=== PATIENT | female | born 1945 | race Caucasian/White ===

== ENCOUNTER 2017-06-13 22:15 | Inpatient (IN) ==
[2017-06-13] MEDS ORDERED: PANTOPRAZOLE 40 MG VIAL IV STA (22:35)
[2017-06-13] MEDS ORDERED: METOCLOPRAMIDE 10 MG/2 ML VIAL IV STA (22:35)
[2017-06-13] MEDS ORDERED: ONDANSETRON 4 MG/2 ML VIAL IV STA (22:35)
[2017-06-13] MEDS ORDERED: SODIUM CHLORIDE 0.9% 500 ML IV STA (22:35)
[2017-06-13] MEDS ORDERED: DICYCLOMINE 20 MG/2 ML AMP IM ONE ×2 (22:37→23:07)
[2017-06-13] MEDS ORDERED: METOCLOPRAMIDE 10 MG/2 ML VIAL ONE (23:06)
[2017-06-13] MEDS ORDERED: PANTOPRAZOLE 40 MG VIAL IV ONE (23:06)
[2017-06-13] MEDS ORDERED: ONDANSETRON 4 MG/2 ML VIAL ONE (23:06)
[2017-06-13 23:10] LABS: Basophils % 0.4 % (0.0-0.8); Eosinophils # 0.1 10*3/uL (0.0-0.87); Eosinophils % 0.9 % (0.00-10.9); Hematocrit 34.7 VOL% (35.7-47.0); Hemoglobin 11.4 GM/DL (12.0-16.0); Immature Granulocytes % 0.1 %; Immature Granulocytes Absolute 0.01 #; Lymphocytes # 1.9 10*3/uL (1.4-4.0); Lymphocytes % 28.2 % (21.3-54.2); Mean Corpuscular HGB Conc 32.9 GM/DL (32-36); Mean Corpuscular Hemoglobin 27 PG (27-34); Mean Corpuscular Volume 82.2 FL (87-102); Mean Platelet Volume 10.2 FL (9.6-12.0); Monocytes # 0.5 10*3/uL (0.11-0.8); Monocytes % 7.1 % (1.7-12.7); Neutrophils # 4.3 10*3/uL (1.4-7.4); Neutrophils % 63.3 % (38.7-73.9); Platelet Count 247 T/CUMM (130-400); Red Blood Count 4.22 MC/CUMM (3.8-5.5); Red Cell Distribution Width 14.5 % (9.3-17.3); White Blood Count 6.7 T/CUMM (4-12)
[2017-06-13 23:33] LABS: INR 0.9
[2017-06-13 23:41] LABS: Alanine Aminotransferase 116 U/L (13-56); Albumin 3.7 G/DL (3.4-5.0); Alkaline Phosphatase 268 U/L (45-117); Amylase 245 U/L (25-115); Aspartate Amino Transferase 327 U/L (0-37); Blood Urea Nitrogen 17 MG/DL (7-18); Calcium 8.9 MG/DL (8.5-10.1); Glucose 120 MG/DL (74-106); Osmolality,Calculated 281.4 MOS/KG (273-304); Potassium 4.1 MMOL/L (3.5-5.1); Sodium 140 MMOL/L (136-145); Total Protein 6.7 G/DL (6.4-8.3); Troponin I Only < 0.015 NG/ML (0.00-0.045)
[2017-06-14 01:08] LABS: Apearance,Urine CLEAR (Clear); Bacteria,Urine Occasional /HPF (Few); Bilirubin,Urine Negative (Negative); Blood, Urine Negative (Negative); Calcium Oxalate Crystals,Urine Occasional /HPF (Few); Glucose,Urine (UA) Negative (Negative); Ketones,Urine Negative (Negative); Mucus,Urine Occasional /LPF (Occasional); Nitrite,Urine Negative (Negative); Protein,Urine Negative; RBC,Urine 1 /HPF (0-4); Squamous Epithelial Cell,Urine Occasional /HPF (0-10); Urine Color Yellow (Yellow); Urine Specific Gravity 1.011 (1.001-1.035); Urine Urobilinogen < 2.0 EU/DL (0.2-1.0); WBC,Urine 3 /HPF (0-6)
[2017-06-14] MEDS ORDERED: HYDROmorphone 2 MG/1 ML VIAL IV STA (01:40)
[2017-06-14] MEDS ORDERED: HYDROmorphone 2 MG/1 ML VIAL ONE (01:56)
[2017-06-14] MEDS ORDERED: SODIUM CHLORIDE 0.9% 1,000 ML IV SCH (02:38)
[2017-06-14] MEDS ORDERED: SODIUM CHLORIDE 0.9% 500 ML IV ONE (02:40)
[2017-06-14] MEDS: CIPROFLOXACIN INJ 400 MG in PREMIX 1 EACH IV SCH ×3 (04:08→18:24)
[2017-06-14 06:54] LABS: Magnesium 1.9 MG/DL (1.8-2.4); Risk Ratio 2.18; VLDL CHOLESTEROL 7.8 MG/DL
[2017-06-14] MEDS: LACTATED RINGERS 1,000 ML IV SCH ×5 (06:54→23:34)
[2017-06-14 06:57] LABS: Albumin 3.1 G/DL (3.4-5.0); Calcium 8.2 MG/DL (8.5-10.1); Osmolality,Calculated 281.4 MOS/KG (273-304); Total Protein 5.8 G/DL (6.4-8.3)
[2017-06-14 07:46] LABS: Hepatitis A Ab IgM Quant 0.12 Index; Hepatitis A Ab IgM Result Negative (Negative); Hepatitis B Core IgM Quant 0.09 Index; Hepatitis B Core IgM Result Negative (Negative); Hepatitis B Surface Ag Quant 0.28 Index; Hepatitis B Surface Ag Result Negative (Negative); Hepatitis C Virus Ab Quant < 0.02 Index; Hepatitis C Virus Ab Result Negative (Negative)
[2017-06-14] MEDS: PANTOPRAZOLE 40 MG VIAL IV SCH (09:28)
[2017-06-14] MEDS: ENOXAPARIN 40 MG/0.4 ML SYRINGE SUBCUT SCH (09:29)
[2017-06-14] MEDS: HYDROmorphone 2 MG/1 ML VIAL IV PRN ×3 (10:35→23:45)
[2017-06-14] MEDS: ONDANSETRON 4 MG/2 ML VIAL IV PRN (20:51)
[2017-06-14] MEDS: OXcarbazepine 300 MG TABLET PO PRN (23:44)
[2017-06-14] MEDS: traZODone 50 MG TABLET PO PRN (23:45)
[2017-06-15] MEDS: CIPROFLOXACIN INJ 400 MG in PREMIX 1 EACH IV SCH ×3 (01:46→17:39)
[2017-06-15] MEDS: LACTATED RINGERS 1,000 ML IV SCH ×5 (05:13→23:50)
[2017-06-15] MEDS: ONDANSETRON 4 MG/2 ML VIAL IV PRN (05:18)
[2017-06-15] MEDS: HYDROmorphone 2 MG/1 ML VIAL IV PRN ×2 (05:22→23:46)
[2017-06-15 07:30] LABS: Basophils % 0.7 % (0.0-0.8); Eosinophils # 0.3 10*3/uL (0.0-0.87); Eosinophils % 6.3 % (0.00-10.9); Hematocrit 33.2 VOL% (35.7-47.0); Hemoglobin 10.6 GM/DL (12.0-16.0); Immature Granulocytes % 0.2 %; Immature Granulocytes Absolute 0.01 #; Lymphocytes % 37.3 % (21.3-54.2); Mean Corpuscular HGB Conc 31.9 GM/DL (32-36); Mean Corpuscular Hemoglobin 27 PG (27-34); Mean Corpuscular Volume 83.2 FL (87-102); Mean Platelet Volume 10.6 FL (9.6-12.0); Monocytes # 0.5 10*3/uL (0.11-0.8); Monocytes % 8.6 % (1.7-12.7); Neutrophils # 2.5 10*3/uL (1.4-7.4); Neutrophils % 46.9 % (38.7-73.9); Platelet Count 225 T/CUMM (130-400); Red Blood Count 3.99 MC/CUMM (3.8-5.5); Red Cell Distribution Width 14.4 % (9.3-17.3); White Blood Count 5.4 T/CUMM (4-12)
[2017-06-15 07:57] LABS: Eosinophils 6 % (0-10); Hypochromasia 2+; Lymphocytes 25 % (20-55); Microcytosis 1+; Platelet Estimate Adequate; Segmented Neutrophils 63 % (50-85); Total Cells Counted 100
[2017-06-15 08:03] LABS: Albumin 3.1 G/DL (3.4-5.0); Bilirubin,Total 1.1 MG/DL (0.2-1.0); Calcium 8.7 MG/DL (8.5-10.1); Osmolality,Calculated 278.3 MOS/KG (273-304); Potassium 3.9 MMOL/L (3.5-5.1); Total Protein 5.7 G/DL (6.4-8.3)
[2017-06-15] MEDS: ENOXAPARIN 40 MG/0.4 ML SYRINGE SUBCUT SCH (08:14)
[2017-06-15] MEDS: PANTOPRAZOLE 40 MG VIAL IV SCH (08:14)
[2017-06-15] MEDS: DULoxetine 20 MG CAPSULE PO SCH (08:15)
[2017-06-15] MEDS: ACETAMINOPHEN 325 MG TABLET PO PRN ×2 (09:52→22:21)
[2017-06-15] MEDS: traZODone 50 MG TABLET PO PRN (20:09)
[2017-06-15] MEDS: OXcarbazepine 300 MG TABLET PO PRN (20:10)
[2017-06-16] MEDS: CIPROFLOXACIN INJ 400 MG in PREMIX 1 EACH IV SCH ×3 (02:06→19:36)
[2017-06-16] MEDS: PANTOPRAZOLE 40 MG VIAL IV SCH (10:18)
[2017-06-16] MEDS ORDERED: PROPOFOL 200 MG/20 ML VIAL IV ONE (11:00)
[2017-06-16] MEDS ORDERED: LIDOCAINE 100 MG/5 ML SYRINGE ONE (11:00)
[2017-06-16] MEDS: DULoxetine 20 MG CAPSULE PO SCH (12:24)
[2017-06-16] MEDS: HYDROmorphone 2 MG/1 ML VIAL IV PRN ×2 (14:50→19:43)
[2017-06-16] MEDS: ACETAMINOPHEN 325 MG TABLET PO PRN ×2 (15:00→19:38)
[2017-06-16] MEDS ORDERED: ALUMINUM/MAGNES/SIMETH MAX STR 30 ML UDCUP PO PRN (15:02)
[2017-06-16] MEDS ORDERED: LOPERAMIDE 2 MG CAPSULE PO PRN (16:06)
[2017-06-16] MEDS: LACTATED RINGERS 1,000 ML IV SCH ×2 (16:18→16:20)
[2017-06-16] MEDS: ONDANSETRON 4 MG/2 ML VIAL IV PRN (19:41)
[2017-06-16] MEDS: QUEtiapine 25 MG TABLET PO PRN (21:17)
[2017-06-16] MEDS: traZODone 50 MG TABLET PO PRN (21:18)
[2017-06-16] MEDS: PANTOPRAZOLE 40 MG TABLET PO SCH (21:21)
[2017-06-17] MEDS: LACTATED RINGERS 1,000 ML IV SCH ×4 (01:52→21:00)
[2017-06-17] MEDS: CIPROFLOXACIN INJ 400 MG in PREMIX 1 EACH IV SCH ×3 (02:19→19:26)
[2017-06-17 06:40] LABS: % Iron Saturation 7.7 % (18-50); Ferritin 12.1 ng/ml (8-252)
[2017-06-17 06:41] LABS: Albumin 2.8 G/DL (3.4-5.0); Bilirubin,Direct 0.12 MG/DL (0.0-0.20); Bilirubin,Indirect 0.4 MG/DL (0.0-1.0); Bilirubin,Total 0.5 MG/DL (0.2-1.0); Total Protein 5.5 G/DL (6.4-8.3)
[2017-06-17] MEDS: PANTOPRAZOLE 40 MG TABLET PO SCH ×2 (08:25→20:57)
[2017-06-17] MEDS: DULoxetine 20 MG CAPSULE PO SCH (08:25)
[2017-06-17] MEDS: HYDROmorphone 2 MG/1 ML VIAL IV PRN (09:22)
[2017-06-17] MEDS: ACETAMINOPHEN 325 MG TABLET PO PRN (09:23)
[2017-06-17] MEDS: QUEtiapine 25 MG TABLET PO PRN (20:57)
[2017-06-17] MEDS: traZODone 50 MG TABLET PO PRN (20:57)
[2017-06-18] MEDS: CIPROFLOXACIN INJ 400 MG in PREMIX 1 EACH IV SCH ×4 (02:10→17:50)
[2017-06-18] MEDS: LACTATED RINGERS 1,000 ML IV SCH (05:33)
[2017-06-18] MEDS: DULoxetine 20 MG CAPSULE PO SCH (08:51)
[2017-06-18] MEDS: PANTOPRAZOLE 40 MG TABLET PO SCH ×2 (08:51→21:48)
[2017-06-18] MEDS: HYDROmorphone 2 MG/1 ML VIAL IV PRN ×2 (08:52→17:49)
[2017-06-18] MEDS: ONDANSETRON 4 MG/2 ML VIAL IV PRN (17:57)
[2017-06-18] MEDS: traZODone 50 MG TABLET PO PRN (21:54)
[2017-06-18] MEDS: QUEtiapine 25 MG TABLET PO PRN (21:54)
[2017-06-19] MEDS: CIPROFLOXACIN INJ 400 MG in PREMIX 1 EACH IV SCH ×2 (03:28→11:48)
[2017-06-19] MEDS: PANTOPRAZOLE 40 MG TABLET PO SCH (09:51)
[2017-06-19] MEDS: DULoxetine 20 MG CAPSULE PO SCH (09:51)
[2017-06-19 11:22] VITALS: BP 166/91
== END 2017-06-19 16:45 | disposition home or self-care (01) | DRG 440 ==
LOC: N.ED 22:15 → N.EDINP 06-14 01:39 → SUATTDRO 06-14 01:39 → N.5E 06-14 02:12
PROVIDERS: ADMIT Internal Medicine; ATTEND Internal Medicine

== ENCOUNTER 2022-02-15 11:20 | Inpatient (IN) ==
[2022-02-15] MEDS: ALBUTEROL NEB SOLN 5 MG/ML 20 ML/BOTTLE CONT NEB SCH ×2 (11:24→13:24)
[2022-02-15] MEDS ORDERED: methylPREDNISolone SOD SUC 125 MG/2 ML VIAL IV STA (12:10)
[2022-02-15 12:35] LABS: Arterial Base Excess iSTAT -2 MMOL/L (-2.5-2.5); Arterial Bicarbonate iSTAT 21.1 MMOL/L (20-26); Arterial O2 Saturation iSTAT 96 % (95-100); Arterial PCO2 iSTAT 29 MM HG (35-48); Arterial PO2 iSTAT 74 MM HG (80-95); Arterial Total CO2 iSTAT 22 MMO/L (23-27); Arterial pH iSTAT 7.465 (7.35-7.45)
[2022-02-15 12:42] LABS: Basophils # 0.1 10*3/uL (0.0-0.2); Basophils % 0.6 % (0.0-0.8); Eosinophils # 0.2 10*3/uL (0.0-0.87); Eosinophils % 2.7 % (0.00-10.9); Hemoglobin 11.6 GM/DL (12.0-16.0); Immature Granulocytes % 0.6 %; Immature Granulocytes Absolute 0.05 #; Lymphocytes # 2.2 10*3/uL (1.4-4.0); Lymphocytes % 25.4 % (21.3-54.2); Mean Corpuscular HGB Conc 32.2 GM/DL (32-36); Mean Corpuscular Volume 89.8 FL (87-102); Mean Platelet Volume 9.5 FL (9.6-12.0); Monocytes # 0.5 10*3/uL (0.11-0.8); Monocytes % 5.4 % (1.7-12.7); Neutrophils % 65.3 % (38.7-73.9); Platelet Count 258 T/CUMM (130-400); Red Blood Count 4.01 MC/CUMM (3.8-5.5); Red Cell Distribution Width 15.2 % (9.3-17.3); White Blood Count 8.8 T/CUMM (4-12)
[2022-02-15 12:55] LABS: INR 0.9; PT Patient Result 10.4 SECS (10.1-12.1); Partial Thromboplastin Time 21.6 SECS (23.7-32.9)
[2022-02-15 13:06] LABS: Albumin 3.2 G/DL (3.4-5.0); Bilirubin,Total 0.4 MG/DL (0.20-1.00); Calcium 8.8 MG/DL (8.5-10.1); Potassium 4.2 MMOL/L (3.5-5.1); Total Protein 6.3 G/DL (6.4-8.2)
[2022-02-15] MEDS ORDERED: ENOXAPARIN 120 MG/0.8 ML SYRINGE SUBCUT STA (15:23)
[2022-02-15] MEDS ORDERED: ONDANSETRON 4 MG/2 ML VIAL IV PRN (16:13)
[2022-02-15] MEDS ORDERED: GLUCAGON 1 MG VIAL IM PRN (16:13)
[2022-02-15] MEDS ORDERED: DEXTROSE 10% 250 ML BAG IV PRN (16:18)
[2022-02-15] MEDS ORDERED: ALBUTEROL/IPRATROPIUM 3 ML NEB RESP TX SCH (19:00)
[2022-02-15 19:39] LABS: Mucus,Urine Occasional /LPF (Occasional); RBC,Urine 6 /HPF (0-4); Squamous Epithelial Cell,Urine Occasional /HPF (0-10); Urine Appearance Clear (Clear); Urine Color Yellow (Yellow)
[2022-02-15 19:40] LABS: Bilirubin,Urine Negative (Negative); Blood, Urine Negative (Negative); Glucose,Urine (UA) Negative (Negative); Ketones,Urine 15 mg/dL (Negative); Nitrite,Urine Negative (Negative); Protein,Urine Negative (Negative); Urine Specific Gravity 1.015 (1.001-1.035); Urine Urobilinogen 0.2 eU/dL (<2.0); Urine pH 5.5 (4.5-8.0)
[2022-02-15 20:02] LABS: Barbiturates Screen,Urine Negative (Negative); Benzodiazepines Screen,Urine Negative (Negative); Cannabinoid Screen,Urine Negative (Negative); Opiate Screen,Urine Positive (Negative); Phencyclidine Screen,Urine Negative (Negative)
[2022-02-15] MEDS: APIXABAN 5 MG TABLET PO SCH (20:12)
[2022-02-15] MEDS ORDERED: ZALEPLON 5 MG CAPSULE PO ONE (21:40)
[2022-02-15] MEDS: ACETAMINOPHEN 325 MG TABLET PO PRN (21:51)
[2022-02-16 04:39] LABS: Basophils % 0.1 % (0.0-0.8); Hematocrit 35.9 VOL% (35.7-47.0); Hemoglobin 11.5 GM/DL (12.0-16.0); Immature Granulocytes % 0.4 %; Immature Granulocytes Absolute 0.04 #; Lymphocytes # 1.4 10*3/uL (1.4-4.0); Lymphocytes % 12.5 % (21.3-54.2); Mean Corpuscular Volume 89.8 FL (87-102); Monocytes # 0.4 10*3/uL (0.11-0.8); Monocytes % 3.8 % (1.7-12.7); Neutrophils % 83.2 % (38.7-73.9); Platelet Count 277 T/CUMM (130-400); Red Cell Distribution Width 15.3 % (9.3-17.3); White Blood Count 10.8 T/CUMM (4-12)
[2022-02-16 05:02] LABS: Calcium 8.9 MG/DL (8.5-10.1); Osmolality,Calculated 284.3 MOS/KG (273-304); Potassium 4.4 MMOL/L (3.5-5.1)
[2022-02-16] MEDS: PANTOPRAZOLE 40 MG TABLET PO SCH (09:42)
[2022-02-16] MEDS: APIXABAN 5 MG TABLET PO SCH ×2 (09:43→20:06)
[2022-02-16] MEDS ORDERED: hydrALAZINE 20 MG/1 ML VIAL IV PRN (20:56)
[2022-02-16] MEDS: ACETAMINOPHEN 325 MG TABLET PO PRN (21:23)
[2022-02-17 04:18] LABS: Basophils # 0.1 10*3/uL (0.0-0.2); Basophils % 0.8 % (0.0-0.8); Eosinophils # 0.3 10*3/uL (0.0-0.87); Eosinophils % 3.6 % (0.00-10.9); Hematocrit 36.8 VOL% (35.7-47.0); Hemoglobin 11.6 GM/DL (12.0-16.0); Immature Granulocytes % 0.4 %; Immature Granulocytes Absolute 0.04 #; Lymphocytes # 3.3 10*3/uL (1.4-4.0); Lymphocytes % 37.2 % (21.3-54.2); Mean Corpuscular HGB Conc 31.5 GM/DL (32-36); Mean Corpuscular Volume 90.2 FL (87-102); Mean Platelet Volume 9.3 FL (9.6-12.0); Monocytes # 0.6 10*3/uL (0.11-0.8); Monocytes % 6.4 % (1.7-12.7); Neutrophils % 51.6 % (38.7-73.9); Platelet Count 257 T/CUMM (130-400); Red Blood Count 4.08 MC/CUMM (3.8-5.5); Red Cell Distribution Width 15.7 % (9.3-17.3)
[2022-02-17] MEDS: ACETAMINOPHEN 325 MG TABLET PO PRN ×2 (04:36→14:14)
[2022-02-17 04:37] LABS: Alanine Aminotransferase 25 U/L (13-56); Albumin 2.8 G/DL (3.4-5.0); Alkaline Phosphatase 107 U/L (45-117); Aspartate Amino Transferase 23 U/L (0-37); Bilirubin,Total < 0.39 MG/DL (0.20-1.00); Blood Urea Nitrogen 11 MG/DL (7-18); Calcium 8.4 MG/DL (8.5-10.1); Carbon Dioxide 22 MMOL/L (21-32); Chloride 115 MMOL/L (98-107); Glucose 109 MG/DL (74-106); Osmolality,Calculated 287.7 MOS/KG (273-304); Potassium 3.4 MMOL/L (3.5-5.1); Sodium 145 MMOL/L (136-145); Total Protein 6.1 G/DL (6.4-8.2)
[2022-02-17] MEDS ORDERED: POTASSIUM CHLORIDE 20 MEQ TABLET PO ONE (08:04)
[2022-02-17] MEDS: PANTOPRAZOLE 40 MG TABLET PO SCH (08:26)
[2022-02-17] MEDS: APIXABAN 5 MG TABLET PO SCH (08:27)
[2022-02-17] MEDS ORDERED: ESCITALOPRAM 10 MG TABLET PO SCH (09:00)
[2022-02-17] MEDS ORDERED: LISINOPRIL/HCTZ 20-12.5 MG TABLET PO SCH (09:00)
[2022-02-17 12:01] VITALS: BP 167/77
== END 2022-02-17 14:53 | disposition home or self-care (01) | DRG 176 ==
LOC: N.ED 11:20 → N.EDINP 11:20 → SUATTDRO 15:40 → N.TELES 16:45 → SUATTDRO 02-16 12:30
PROVIDERS: ADMIT Hospitalist; ATTEND Hospitalist